=== PATIENT | male | born 1995 | race Caucasian/White ===

== ENCOUNTER 2017-06-10 23:19 | Emergency (ER) | payer SELFPAY ==
[~2017-06-10] VITALS: Ht 175.3 cm; Wt 68.5 kg
[2017-06-11 06:43] VITALS: BP 108/77
== END 2017-06-11 07:38 | disposition home or self-care (01) ==
LOC: ED 06-11 07:12
DX: F10.120 Alcohol abuse with intoxication, uncomplicated (principal)
CPT/HCPCS: 99283